=== PATIENT | male | born 1980 | race Caucasian/White ===

== ENCOUNTER 2023-09-11 08:12 | Emergency (ER) | payer OTHER ==
[2023-09-11] MEDS: PROPARACAINE 0.5% OPHTH DROPS 15 ML EACHEYE STA (09:13)
[2023-09-11 09:14] VITALS: BP 131/91; O2SAT 100
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
== END 2023-09-11 10:22 | disposition home or self-care (01) ==
LOC: ED 08:12
DX: T20.10XA Burn of first degree of head, face, and neck, unspecified site, initial encounter (principal); H10.213 Acute toxic conjunctivitis, bilateral; Y99.0 Civilian activity done for income or pay; X19.XXXA Contact with other heat and hot substances, initial encounter; Z87.891 Personal history of nicotine dependence
CPT/HCPCS: 1040M; 16000; 99283; 99284; J3490